=== PATIENT | female | born 1990 | race Caucasian/White ===

== ENCOUNTER 2019-02-07 13:31 | Outpatient (CLI) | payer OTHER ==
[2019-02-07 14:29] VITALS: BP 139/74; PULSE 102; RESP 16; TEMP 97
--- NOTE | 2019-02-08 10:29 | P.MSEPDOC ---
Presenting Problems - Arrival Data Date of Arrival on Unit: 02/07/19 Time of Arrival on Unit: 13:31 Mode of Transport: Ambulatory - Complaint OB-Reason for Admission/Chief Complaint: Rule Out PROM Medical History - Information : 1 Para: 0 Term: 0 : 0 Abortions: Spontaneous or Elective: 0 Number of Living Children: 0 - Gestational Age Gestational Age by HELEN (wks/days): 85 Weeks and 0 Days Review of Systems - Review of Systems Constitutional: No problems Breast: No problems ENT: No problems Cardiovascular: No problems Respiratory: No problems Gastrointestinal: No problems Genitourinary: No problems Musculoskeletal: No problems Neurological: No problems Skin: No problems Vital Signs - Temperature Temperature: 97.0 F Temperature Source: Temporal Artery Scan - Pulse Right Sitting Brachial Pulse Rate: 102 Pulse Assessment Method: Automatic Cuff - Respirations Respiratory Rate: 16 - Blood Pressure Right Arm Blood Pressure: 139/74 Blood Pressure Mean: 95 Blood Pressure Source: Automatic Cuff Medical Screen Scoring (Pre) - Cervical Exam Dilation: Exam Deferred Effacement: Exam Deferred Membranes: Intact - Uterine Contractions Frequency: N/A Duration: N/A Intensity: N/A - Maternal Vital Signs Maternal Temperature: N/A Maternal Blood Pressure: N/A Signs of Preeclampsia: N/A Maternal Respirations: N/A - Maternal Trauma Maternal Trauma: N/A - Assessment - Baby A Baseline FHR: 135 Heart Rate - NICHD Category: Category I (Normal) = 0 NST: Reactive Position: N/A Station: N/A - Total Score - Baby A Total Score - Baby A: 0 - Total Score - Baby B Total Score - Baby B: 0 - Total Score - Baby C Total Score - Baby C: 0 - Level of Risk - Baby A Level of Risk - Baby A: Low (0-5) - Level of Risk - Baby B Level of Risk - Baby B: Low (0-5) - Level of Risk - Baby C Level of Risk - Baby C: Low (0-5) Physician Notification (Pre) - Physician Notified Physician Notified Date: 02/07/19 Physician Notified Time: 14:17 New Order Received: Yes - Notification Comment Comment: discharge home with instructions Disposition - Disposition OB Disposition: Discharge to home, Written follow up instructions reviewed Discharge Date: 02/07/19 Discharge Time: 14:20 I agree with the RN Medical Screening Exam: Yes Risk & Benefit of care provided described in d/c instruction: Yes Diagnosis: FALSE LABOR BEFORE 37 COMPLETED WEEKS OF GEST, THIRD TRI
== END 2019-02-07 14:20 | disposition home or self-care (01) ==
LOC: FBPOP 13:31
PROVIDERS: ATTEND Obstetrics & Gynecology
DX: O47.1 False labor at or after 37 completed weeks of gestation (principal); Z3A.49 Greater than 42 weeks gestation of pregnancy
CPT/HCPCS: 59025; 84112; 99213

== ENCOUNTER 2019-03-22 05:47 | Inpatient (IN) | payer OTHER ==
[2019-03-22] MEDS: LACTATED RINGERS 1,000 ML IV SCH ×3 (06:05→20:52)
--- NOTE | 2019-03-22 06:07 | P.HPOB ---
History of Present Illness H&P Date: 03/22/19 Chief Complaint: Requested induction of labor. This patient is a pleasant 29-year-old 1 para 0 female estimated date of confinement 03/29/2019 estimated gestational age 39 weeks who presents to labor and delivery for requested induction of labor. Patient's care has been uncomplicated. I have been following her for large for gestational age but most recent ultrasound approximately 5 days ago showed the baby estimated weight of 8 pounds. Patient is now requesting delivery. Review of Systems Gastrointestinal: Reports heartburn Genitourinary: Reports Menstruation: Reports amenorrhea Past Medical History Additional Past Medical History / Comment(s): Patient has a history of erosive vulvitis. History of Any Multi-Drug Resistant Organisms: None Reported Past Surgical History: Breast Surgery, Orthopedic Surgery Additional Past Surgical History / Comment(s): Patient's had surgery to her arm and leg, she is also had bilateral breast implants which were removed in April 2018 Past Anesthesia/Blood Transfusion Reactions: No Reported Reaction Past Psychological History: No Psychological Hx Reported Smoking Status: Never smoker Past Alcohol Use History: None Reported Past Drug Use History: None Reported Medications and Allergies Home Medications Medication Instructions Recorded Confirmed Type No Known Home Medications 02/07/19 02/07/19 History Allergies Allergy/AdvReac Type Severity Reaction Status Date / Time No Known Allergies Allergy Verified 02/07/19 14:07 Exam - OBG Physical Exam Abdomen: bowel sounds normal, no diffuse tenderness, no bruit present, no guarding noted, no hepatomegaly, no splenomegaly, no mass Vulva: both: normal Vagina: normal moisture, no discharge Cervix: no lesion (Cervix and office is 2 cm dilated 50% effaced soft.), no discharge Uterus: enlarged (Fundal height was 39 cm) Results blood work shows she is O positive, rubella immune, RPR nonreactive, hepatitis B negative, HIV is nonreactive, Glucola was normal, group B strep was negative, ultrasounds have shown normal anatomy. Estimated weight is 8 pounds. Assessment and Plan Assessment: This is a pleasant 29-year-old 1 para 0 female 39-0/7 weeks gestation who presents to labor and delivery for requested induction of labor. Plan is induction of labor and anticipate vaginal delivery. (1) 39 weeks gestation of Current Visit: Yes Status: Acute Code(s): Z3A.39 - 39 WEEKS GESTATION OF SNOMED Code(s): 15862547 (2) Elective induction of labor planned Current Visit: Yes Status: Acute Code(s): [id number] - SNOMED Code(s): 004226580
[2019-03-22] MEDS ORDERED: LIDOCAINE 0.5% (PF) 5 MG/ML (50 ML SDV) SQ PRN (06:33)
[2019-03-22] MEDS ORDERED: METHYLERGONOVINE 0.2 MG/ML 1 ML AMP IM PRN (06:33)
[2019-03-22] MEDS ORDERED: OXYTOCIN 10 UNIT/ML 1 ML VIAL IM PRN (06:33)
[2019-03-22] MEDS ORDERED: TERBUTALINE 1 MG/ML VIAL SQ PRN (06:33)
[2019-03-22] MEDS ORDERED: OXYTOCIN 30 UNITS/500 ML NS 30 UNIT in SALINE 1 500ML.BAG IV SCH (06:33)
[2019-03-22] MEDS ORDERED: CARBOPROST TROMETHAMINE 250 MCG/ML 1 ML AMP IM PRN (06:33)
[2019-03-22 07:00] LABS: Basophils # (A) 0.1 k/uL (0-0.2); Basophils % (A) 0 %; Eosinophils # (A) 0.2 k/uL (0-0.7); Eosinophils % (A) 1 %; HCT 36.8 % (34.0-46.0); HGB 12.3 gm/dL (11.4-16.0); Lymphocytes # (A) 1.8 k/uL (1.0-4.8); Lymphocytes % (A) 11 %; MCH 28.4 pg (25.0-35.0); MCHC 33.4 g/dL (31.0-37.0); MCV 84.9 fL (80.0-100.0); Mean Platelet Volume 8.5; Monocytes # (A) 0.6 k/uL (0-1.0); Monocytes % (A) 4 %; Neutrophils # (A) 13.1 k/uL (1.3-7.7); Neutrophils % (A) 82 %; Platelet Count 424 k/uL (150-450); RBC 4.33 m/uL (3.80-5.40); RDW 13.9 % (11.5-15.5)
[2019-03-22] MEDS ORDERED: ceFAZolin 3 GM in SODIUM CHLORIDE 0.9% 100 ML IVPB ONE (16:40)
[2019-03-22] MEDS ORDERED: CITRIC ACID-SODIUM CITRATE 15 ML CUP PO ONE (16:40)
[2019-03-22] MEDS ORDERED: ONDANSETRON 4 MG/2 ML VIAL ONE (17:02)
[2019-03-22] MEDS ORDERED: OXYTOCIN 10 UNIT/ML 1 ML VIAL ONE (17:02)
[2019-03-22] MEDS ORDERED: NALBUPHINE 10 MG/ML (1 ML AMP) ONE (17:02)
[2019-03-22] MEDS ORDERED: MORPHINE SULFATE (PF) 0.3 MG/0.3 ML SYR ONE (17:02)
[2019-03-22] MEDS ORDERED: NALOXONE 0.4 MG/ML 1 ML VIAL IV PRN (17:37)
[2019-03-22] MEDS ORDERED: MORPHINE SULFATE 2 MG/ML SYRINGE IVP PRN (17:37)
[2019-03-22] MEDS ORDERED: ONDANSETRON 4 MG/2 ML VIAL IVP PRN (17:37)
[2019-03-22] MEDS ORDERED: NALBUPHINE 10 MG/ML (1 ML AMP) IV PRN (17:37)
[2019-03-22] MEDS ORDERED: KETOROLAC 30 MG/ML 1 ML VIAL IVP PRN (17:37)
[2019-03-22] MEDS ORDERED: ACETAMINOPHEN TAB 325 MG TAB PO PRN (17:57)
[2019-03-22] MEDS ORDERED: ZOLPIDEM 5 MG TAB PO PRN (17:57)
[2019-03-22] MEDS ORDERED: diphenhydrAMINE 25 MG CAP PO PRN (17:57)
[2019-03-22] MEDS ORDERED: METOCLOPRAMIDE 5 MG/ML 2 ML VIAL IVP PRN (17:57)
[2019-03-22] MEDS ORDERED: SIMETHICONE 80 MG CHEWABLE PO PRN (17:57)
[2019-03-22] MEDS ORDERED: HYDROcodone/APAP 5-325MG 1 EACH TAB PO PRN (17:57)
--- NOTE | 2019-03-22 17:57 | P.OP ---
Date of Procedure: 03/22/19 Preoperative Diagnosis: #1: 39-0/7 week . #2: Non-progression in labor with cephalopelvic dystocia. Postoperative Diagnosis: Same Procedure(s) Performed: Primary low transverse section Anesthesia: spinal Surgeon: Warren Bynum Box Liner #1: London Oliver Estimated Blood Loss (ml): 600 Pathology: none sent Condition: stable Disposition: floor Indications for Procedure: Please see dictated H&P for intimate details of this patient's admission. Brief summary is a pleasant 29-year-old 1 para 0 female 39-0/7 weeks gestation admitted to labor and delivery for requested induction of labor. Patient admitted she is 1-2 cm dilated and has artificial rupture membranes for clear fluid. Labor is induced with Pitocin and despite 10 hours of labor patient does not progress beyond 2 cm dilated. I discussed with the patient at this time as far as continued trial of labor versus delivery by section she's requested section which I feel is appropriate. Patient understands this surgery and risks: Risks of infection, bleeding, possible injury bowel, bladder, vessels, and/or other organs. She also understands risk of DVT and pulmonary embolism. All the patient's questions are answered written consent is obtained. Operative Findings: This is a vigorous viable male infant Apgars 8 and 9 delivery time is 1719 hrs. Description of Procedure: This patient has a Bundy catheter placed to straight drain. She is subsequently taken to the operating room where after the appropriate timeout, spinal anesthetic is administered without incident. With an adequate level of anesthesia she has abdominal prep and drape. Scalpels then taken and a Pfannenstiel skin incision is then made. A second scalpel is taken down the fascia the fascia scored with a knife. Fascial incision is extended bilaterally using Gandhi scissors. Fascia is then dissected sharply off the rectus muscles. Rectus muscles are then the peritoneum identified and entered sharply. Peritoneal incision extended superior and inferior without difficulty. At this time the Gurdeep self-retaining retractors placed. With excellent visualization the bladder blade is placed in the bladder peritoneum was taken off the lower uterine segment. Scalpels then taken low transverse uterine incision is made. Using a hemostat I into the uterine cavity bluntly and there is loss of clear fluid. This incision extended bluntly. 's head is then gently guided through the incision. Mouth and nares are bulb suctioned. The 's head appeared to be occiput posterior partially and slightly asynclitic. There is no evidence of a nuchal cord. We then have easily deliver the anterior and posterior shoulder and rest this infant's body. This is a vigorous viable male infant Apgars are 8 and 9 delivery time is 1719 hrs. After delivery of the infant the umbilical cord is doubly clamped and cut appears to be trivascular. The placenta is then manually extracted intact. Uterus is then externalized and uterine incision is then demarcated with Lyn clamps. Uterine incision closed using 0 Vicryl running locked fashion. 2 layers. With excellent hemostasis noted the uterus placed back into the abdomen. Excess fluid and blood is removed. Final inspection shows good hemostasis. Parietal peritoneum was then closed using 0 Vicryl running fashion. Of note the uterus tubes and ovaries appear normal for term gestation. The rectus muscles were to proximal 0 Vicryl interrupted fashion. Fascia is then closed using 0 PDS. Fascial incision is intact and hemostatic. Subcutaneous tissues and closed using a 3-0 Vicryl. Skin is and closed using bill. All counts are correct 3. There are no complications. and mother stable in delivery room.
[2019-03-22] MEDS ORDERED: OXYTOCIN 20 UNITS/1000 ML NS 1,000 ML IV SCH (18:00)
[2019-03-22] MEDS: diphenhydrAMINE 50 MG/ML 1 ML VIAL IVP PRN ×2 (20:38→22:20)
[2019-03-22] MEDS: SENNOSIDES-DOCUSATE SODIUM 1 EACH TAB PO SCH (20:52)
[2019-03-23] MEDS ORDERED: ceFAZolin 3 GM in SODIUM CHLORIDE 0.9% 100 ML IVPB SCH (01:00)
[2019-03-23] MEDS: LACTATED RINGERS 1,000 ML IV SCH (04:12)
--- NOTE | 2019-03-23 06:11 | P.PNOBGPC ---
Subjective - Subjective Patient reports: Reports appetite normal, Reports voiding normally, Reports pain well controlled, Reports ambulating normally : doing well Objective - Vital Signs Latest vital signs: Vital Signs Temp Pulse Resp BP Pulse Ox 03/23/19 04:00 98.1 F 75 16 136/68 100 03/23/19 02:00 16 03/23/19 00:00 98.3 F 71 16 123/84 100 03/22/19 22:00 14 03/22/19 19:43 97.4 F L 72 16 119/57 98 03/22/19 19:13 79 16 115/56 98 03/22/19 18:43 77 16 121/68 96 03/22/19 18:28 77 16 116/83 98 03/22/19 18:13 83 16 126/59 97 03/22/19 17:58 86 16 97/51 96 03/22/19 17:43 97.1 F L 89 16 144/65 98 Intake and Output 03/22/19 03/22/19 03/23/19 14:59 22:59 06:59 Intake Total 9041 440 5613 Output Total 700 800 Balance 1000 100 300 Intake: IV 800 Intake, IV Titration 1000 1100 Amount Lactated Ringers 1,000 ml 1000 @ 125 mls/hr IV .Q8H LUL[facility] Rx#:[id number] Lactated Ringers 1,000 ml 1000 @ 125 mls/hr IV .Q8H LULU Rx#:[id number] ceFAZolin 3 gm In Sodium 100 Chloride 0.9% 100 ml @ 200 mls/hr IVPB Q8H LULU Rx#:[id number] Output: Urine 100 800 Uretheral (Bundy) 800 Estimated Blood Loss 600 Other: Voiding Method Indwelling Catheter # Voids 3 0 - Exam Lungs: bilateral: normal Chest: Normal S1, Normal S2 Extremities: Present: normal Abdomen: Present: normal appearance, soft. Absent: distention, tenderness Incision: Present: normal, dry, intact Uterus: Present: normal, firm - Labs Labs: Abnormal Lab Results - Last 24 Hours (Table) 03/22/19 Range/Units 06:10 WBC 16.0 H (3.8-10.6) k/uL Neutrophils # 13.1 H (1.3-7.7) k/uL Assessment and Plan Assessment: Postoperative day #1. Patient is resting without complaints. Vital signs are stable she is afebrile. Uterus is firm nontender and her incision is intact and dry. Plan today is to check a CBC, encourage ambulation, advance to regular diet, continue care. (1) 39 weeks gestation of Current Visit: Yes Status: Acute Code(s): Z3A.39 - 39 WEEKS GESTATION OF SNOMED Code(s): 09088504 (2) Elective induction of labor planned Current Visit: Yes Status: Acute Code(s): [id number] - SNOMED Code(s): 198244235
[2019-03-23] MEDS: SENNOSIDES-DOCUSATE SODIUM 1 EACH TAB PO SCH ×2 (08:10→21:08)
[2019-03-23 09:37] LABS: Basophils % (A) 0 %; Eosinophils # (A) 0.1 k/uL (0-0.7); Eosinophils % (A) 1 %; HCT 35.2 % (34.0-46.0); HGB 11.4 gm/dL (11.4-16.0); Lymphocytes # (A) 1.1 k/uL (1.0-4.8); Lymphocytes % (A) 9 %; MCH 27.6 pg (25.0-35.0); MCHC 32.3 g/dL (31.0-37.0); MCV 85.7 fL (80.0-100.0); Monocytes # (A) 0.5 k/uL (0-1.0); Monocytes % (A) 4 %; Neutrophils # (A) 10.1 k/uL (1.3-7.7); Neutrophils % (A) 85 %; Platelet Count 277 k/uL (150-450); RBC 4.11 m/uL (3.80-5.40); RDW 14.3 % (11.5-15.5); WBC 11.9 k/uL (3.8-10.6)
--- NOTE | 2019-03-23 13:55 | P.PN ---
Progress Note - Text Progress Note Date: 03/23/19 (6:30 AM) Patient seen and examined at bedside, she is postop day 1 from with Duramorph spinal. VAS score today is 2-3/10. Patient denies headaches, lower extremity weakness, numbness and tingling. She has had some mild itching which improved with medications. She also had 1 episode of emesis last night, she is no longer nauseated. She has ambulated.
[2019-03-23] MEDS: IBUPROFEN 600 MG TAB PO PRN (23:00)
--- NOTE | 2019-03-24 06:54 | P.PNOBGPC ---
Subjective - Subjective Patient reports: Reports appetite normal, Reports voiding normally, Reports pain well controlled, Reports ambulating normally : doing well Objective - Vital Signs Latest vital signs: Vital Signs Temp Pulse Resp BP Pulse Ox 03/24/19 00:00 97.6 F 98 16 130/80 03/23/19 22:00 16 03/23/19 20:00 97.4 F L 105 H 16 133/71 03/23/19 17:54 20 100 03/23/19 15:42 97.6 F 90 20 126/68 100 03/23/19 14:00 20 100 03/23/19 12:00 98.1 F 98 20 128/64 99 03/23/19 10:00 20 100 03/23/19 08:00 97.7 F 95 20 109/74 100 Intake and Output 03/23/19 03/23/19 03/24/19 14:59 22:59 06:59 Intake Total 720 Output Total 900 1500 Balance -180 -1500 Intake: Oral 720 Output: Urine 900 1500 Other: # Voids 1 1 - Exam Lungs: bilateral: normal Chest: Normal S1, Normal S2 Extremities: Present: normal Abdomen: Present: normal appearance, soft. Absent: distention, tenderness Incision: Present: normal, dry, intact Uterus: Present: normal, firm - Labs Labs: Abnormal Lab Results - Last 24 Hours (Table) 03/23/19 Range/Units 08:28 WBC 11.9 H (3.8-10.6) k/uL Neutrophils # 10.1 H (1.3-7.7) k/uL Assessment and Plan Assessment: Postoperative day #2. Patient is doing well without new complaints. Vital signs are stable she's afebrile. Uterus is firm nontender and her incision is intact and dry. CBC yesterday was normal. Patient is tolerating regular diet. Plan today is to continue routine postoperative care discharge home tomorrow (1) 39 weeks gestation of Current Visit: Yes Status: Acute Code(s): Z3A.39 - 39 WEEKS GESTATION OF SNOMED Code(s): 01216612 (2) Elective induction of labor planned Current Visit: Yes Status: Acute Code(s): [id number] - SNOMED Code(s): 084924380
[2019-03-24] MEDS: SENNOSIDES-DOCUSATE SODIUM 1 EACH TAB PO SCH ×2 (08:29→19:53)
[2019-03-24] MEDS: IBUPROFEN 600 MG TAB PO PRN ×2 (08:30→19:52)
[2019-03-25] MEDS: IBUPROFEN 600 MG TAB PO PRN (03:41)
--- NOTE | 2019-03-25 06:34 | P.PNOBGPC ---
Subjective - Subjective Patient reports: Reports appetite normal, Reports voiding normally, Reports pain well controlled, Reports ambulating normally : doing well Objective - Vital Signs Latest vital signs: Vital Signs Temp Pulse Resp BP Pulse Ox 03/25/19 00:00 97.7 F 83 15 126/71 96 03/24/19 16:00 97.7 F 90 16 118/64 100 03/24/19 08:00 97.7 F 88 16 137/77 Intake and Output 03/24/19 03/24/19 03/25/19 14:59 22:59 06:59 Other: # Voids 1 2 1 - Exam Lungs: bilateral: normal Chest: Normal S1, Normal S2 Extremities: Present: normal Abdomen: Present: normal appearance, soft. Absent: distention, tenderness Incision: Present: normal, dry, intact Uterus: Present: normal, firm Assessment and Plan Assessment: Postoperative day #3. Patient is resting without complaints and wishes to go home. Vital signs are stable she is afebrile. Uterus is firm nontender she's having normal lochia. Incision is intact and dry. My impression this is a normal course. Plan is to continue routine care discharge home later today. (1) 39 weeks gestation of Current Visit: Yes Status: Acute Code(s): Z3A.39 - 39 WEEKS GESTATION OF SNOMED Code(s): 96072662 (2) Elective induction of labor planned Current Visit: Yes Status: Acute Code(s): [id number] - SNOMED Code(s): 4056 73863
--- NOTE | 2019-03-25 06:39 | P.DS ---
Providers Date of admission: 03/22/19 05:47 Expected date of discharge: 03/25/19 Attending physician: Warren Bynum Primary care physician: Stated None - Discharge Diagnosis(es) (1) 39 weeks gestation of Current Visit: Yes Status: Acute (2) Elective induction of labor planned Current Visit: Yes Status: Acute Hospital Course: Please see dictated H&P for intimate details of this patient's admission. Brief summary is a pleasant 29-year-old 1 para 0 female 39 weeks gestation admitted to labor and delivery for induction of labor. Patient's subsequent was on have a primary low transverse section. Please see dictated operative note. Postoperative patient does well and on postoperative 3 spell to be stable for discharge home follow up with me in 1 week for an incision check. Procedures: Induction of labor and primary low transverse section Patient Condition at Discharge: Good Plan - Discharge Summary New Discharge Prescriptions: New Ibuprofen [Motrin] 600 mg PO Q6HR PRN #40 tab PRN Reason: Mild Pain Or Fever >= 100.5 HYDROcodone/APAP 5-325MG [Hoffmeister 5-325] 1 each PO Q4HR PRN #18 tab PRN Reason: Moderate Pain Discharge Medication List HYDROcodone/APAP 5-325MG [Hoffmeister 5-325] 1 each PO Q4HR PRN #18 tab 03/25/19 [Rx] Ibuprofen [Motrin] 600 mg PO Q6HR PRN #40 tab 03/25/19 [Rx] Follow up Appointment(s)/Referral(s): Warren Bynum MD [STAFF PHYSICIAN] - 03/30/19 9:00 am (Please see me for a visit on April 28 at 10:45 AM as well.) Patient Instructions/Handouts: (DC) Activity/Diet/Wound Care/Special Instructions: No strenuous activities or heavy lifting for 6 weeks. No driving. No intercourse or anything per vagina for 6 weeks. Please call if any fever, chills, excessive vaginal bleeding, and/or abdominal pain. Discharge Disposition: HOME SELF-CARE
[2019-03-25 08:28] VITALS: BP 131/75; PULSE 80; RESP 16; TEMP 98.1
[2019-03-25] MEDS: SENNOSIDES-DOCUSATE SODIUM 1 EACH TAB PO SCH (09:29)
== END 2019-03-25 10:45 | disposition home or self-care (01) | DRG 788 ==
LOC: 4FBP 05:47
PROVIDERS: ADMIT Obstetrics & Gynecology; ATTEND Obstetrics & Gynecology
PROC: 10D00Z1 Extraction of Products of Conception, Low, Open Approach (ICD-10-PCS; principal; 2019-03-22 17:00)
DX: O65.8 Obstructed labor due to other maternal pelvic abnormalities (principal); Z37.0 Single live birth; Z3A.39 39 weeks gestation of pregnancy; Z98.82 Breast implant status
CPT/HCPCS: 85025; 86850; 86900; 86901

== ENCOUNTER → 2019-10-28 | Outpatient (CLI) | payer OTHER | END | disposition home or self-care (01) | LOC: LABWHC1 10:49 | PROVIDERS: ATTEND Internal Medicine Critical Care Medicine | DX: Z20.828 Contact with and (suspected) exposure to other viral communicable diseases (principal) | CPT/HCPCS: U0003; C9803 ==

== ENCOUNTER → 2019-12-21 | Outpatient (CLI) | payer OTHER | END | disposition home or self-care (01) | LOC: LABWHC1 14:12 | PROVIDERS: ATTEND Family Medicine | DX: Z20.828 Contact with and (suspected) exposure to other viral communicable diseases (principal); R68.83 Chills (without fever) | CPT/HCPCS: U0003; C9803 ==

== ENCOUNTER → 2020-05-23 | Outpatient (CLI) | payer OTHER ==
--- NOTE | 2020-05-24 07:07 | US ---
EXAMINATION TYPE: Transabdominal DATE OF EXAM: 05/23/2020 4:35 PM COMPARISON: NONE CLINICAL HISTORY: Z36 Confirm dates. confirm dates EXAM PERFORMED: Transvaginal (TV) and Transabdominal (TA) EXAM MEASUREMENTS: GESTATIONAL AGE / DATING Physician Established: Not yet established Dates by LMP: (9 weeks/6 days) EDC: 12/20/20 Dates by First Scan: No previous this is first scan Dates by Current Scan for: (9 weeks/4 days) EDC: 12/22/20 MATERNAL ANATOMY Uterus: 8.7 x 7.4 x 7.5cm Right Ovary: 4.6 x 3.4 x 4.2cm Left Ovary: 4.2 x 1.9 x 1.5cm Post CDS / Adnexa: appears wnl Presence of free fluid: no Presence of corpus luteal cyst: cystic area right ovary = 3.7 x 3.3 x 3.5cm GESTATION / SURVEY CRL: 2.8cm (9 weeks/4 days) Yolk Sac (normal less than 6mm): 0.4cm Heart Rate: 170 bpm Rhythm: Normal IUP: Viable IUP Date of LMP: 03/15/20 Beta HcG (if available): Not available at this time IMPRESSION: Single viable intrauterine .
== END | disposition home or self-care (01) ==
LOC: RADUSWWP 16:10
PROVIDERS: ATTEND Obstetrics & Gynecology
DX: Z36.87 Encounter for antenatal screening for uncertain dates (principal)
CPT/HCPCS: 76801; 76817

== ENCOUNTER → 2020-06-11 | Outpatient (CLI) | payer OTHER ==
[2020-06-11 14:53] LABS: HCT 38.2 % (37.2-46.3); HGB 12.5 g/dL (12.0-15.0); MCHC 32.7 g/dL (32.0-37.0); MCV 85.5 fL (80.0-97.0); Platelet Count 332 X 10*3/uL (140-440); RBC 4.47 X 10*6/uL (4.10-5.20); RDW 13.8 % (11.5-14.5); WBC 11.77 X 10*3/uL (4.50-10.00)
[2020-06-11 15:23] LABS: African American GFR (CKD) 148.4 (60.0-200.0); Non-African American GFR(CKD) 128.1 (60.0-200.0)
[2020-06-11 15:25] LABS: Hepatitis B Surface Antigen Non-Reactive (Non-Reactive)
== END | disposition home or self-care (01) ==
LOC: LABWHC1 09:10
PROVIDERS: ATTEND Obstetrics & Gynecology
DX: Z34.81 Encounter for supervision of other normal pregnancy, first trimester (principal); Z3A.00 Weeks of gestation of pregnancy not specified
CPT/HCPCS: 36415; 82565; 82947; 85027; 86762; 86780; 86850; 86900; 86901; 87340

== ENCOUNTER 2020-12-17 05:52 | Inpatient (IN) | payer OTHER ==
--- NOTE | 2020-12-14 06:53 | P.HPOB ---
History of Present Illness H&P Date: 12/14/20 Chief Complaint: Repeat section This patient is a pleasant 30-year-old 2 para 1 female estimated date of confinement 12/21/2020 estimated gestational age 39-3/7 weeks who presents to labor and delivery for elective repeat section. Patient's care has been uncomplicated. She did develop Covid in June of this year but no sequelae from that. Review of Systems Genitourinary: Reports Menstruation: Reports amenorrhea Past Medical History Additional Past Medical History / Comment(s): Patient has a history of erosive vulvitis. Patient previous term section for baby boy History of Any Multi-Drug Resistant Organisms: None Reported Past Surgical History: Breast Surgery, Section, Orthopedic Surgery Additional Past Surgical History / Comment(s): Patient's had surgery to her arm and leg, she is also had bilateral breast implants which were removed in April 2018 Past Anesthesia/Blood Transfusion Reactions: No Reported Reaction Past Psychological History: No Psychological Hx Reported Smoking Status: Never smoker Past Alcohol Use History: None Reported Past Drug Use History: None Reported - Past Family History Mother Family Medical History: No Reported History Medications and Allergies Allergies Allergy/AdvReac Type Severity Reaction Status Date / Time No Known Allergies Allergy Verified 02/07/19 14:07 Exam - OBG Physical Exam Breast: both: normal (no masses) Abdomen: bowel sounds normal, no diffuse tenderness, no bruit present, no guarding noted, no hepatomegaly, no splenomegaly, no mass Vulva: both: normal Vagina: normal moisture, no discharge Cervix: no lesion, no discharge Uterus: enlarged (Colace 39 cm) Results blood work shows she is O positive, rubella immune, RPR nonreactive, hepatitis B negative, group B strep was negative, Glucola was normal, growth and anatomy ultrasounds have been normal. Assessment and Plan Assessment: This is a pleasant 30-year-old 2 para 1 female 39-3/7 weeks gestation admitted to labor and delivery for elective repeat section. Plan is repeat low transverse section. Patient I have discussed the surgery and risks: Risks of infection, bleeding, possible injury bowel, bladder, vessels, and/or other organs. All the patient's questions are answered and a written consent is obtained. (1) Previous delivery affecting Status: Acute Code(s): O34.219 - MATERNAL CARE FOR UNSP TYPE SCAR FROM PREVIOUS DEL SNOMED Code(s): 227506172 (2) 39 weeks gestation of Status: Acute Code(s): Z3A.39 - 39 WEEKS GESTATION OF SNOMED Code(s): 97267812
[2020-12-17] MEDS ORDERED: CITRIC ACID-SODIUM CITRATE 15 ML CUP PO ONE (06:11)
[2020-12-17] MEDS ORDERED: LACTATED RINGERS 1,000 ML IV ONE (06:11)
[2020-12-17] MEDS ORDERED: LACTATED RINGERS 1,000 ML IV SCH (06:11)
[2020-12-17] MEDS ORDERED: ceFAZolin 3 GM in SODIUM CHLORIDE 0.9% 100 ML IVPB ONE (06:30)
[2020-12-17 06:35] LABS: Basophils % (A) 0 %; Eosinophils # (A) 0.1 k/uL (0-0.7); Eosinophils % (A) 1 %; HCT 39.5 % (34.0-46.0); HGB 12.7 gm/dL (11.4-16.0); Lymphocytes % (A) 17 %; MCH 27.3 pg (25.0-35.0); MCHC 32.2 g/dL (31.0-37.0); Mean Platelet Volume 8.1; Monocytes # (A) 0.4 k/uL (0-1.0); Monocytes % (A) 4 %; Neutrophils # (A) 8.7 k/uL (1.3-7.7); Neutrophils % (A) 75 %; Platelet Count 377 k/uL (150-450); RBC 4.65 m/uL (3.80-5.40); RDW 14.9 % (11.5-15.5); WBC 11.5 k/uL (3.8-10.6)
[2020-12-17] MEDS ORDERED: KETOROLAC 15 MG/ML 1 ML VIAL ONE (07:50)
[2020-12-17] MEDS ORDERED: NALBUPHINE 10 MG/ML (1 ML AMP) ONE (07:50)
[2020-12-17] MEDS ORDERED: MORPHINE SULFATE (PF) 0.3 MG/0.3 ML SYR ONE (07:50)
[2020-12-17] MEDS ORDERED: ePHEDrine SULFATE/0.9% NACL/PF 50 MG/5 ML SYRINGE IV ONE (07:50)
[2020-12-17] MEDS ORDERED: OXYTOCIN 30 UNITS/500 ML NS BAG IV ONE (07:50)
[2020-12-17] MEDS ORDERED: ONDANSETRON 4 MG/2 ML VIAL ONE (07:50)
--- NOTE | 2020-12-17 08:39 | P.OP ---
Date of Procedure: 12/17/20 Preoperative Diagnosis: #1: 39-3/7 week intrauterine . #2: Previous section desires repeat Postoperative Diagnosis: Same Procedure(s) Performed: Repeat low transverse section Anesthesia: spinal Surgeon: Warren Bynum Spout Liner #1: Mihaela Cuevas Estimated Blood Loss (ml): 657 Pathology: none sent Condition: stable Disposition: floor Indications for Procedure: Please see dictated H&P for intimate details of this patient's admission. Brief summary is a pleasant 30-year-old 2 para 1 female 39-3/7 weeks gestation admitted to labor and delivery for elective repeat section. Patient I have discussed the surgery and risks and risks of infection, bleeding, possible injury bowel, bladder, vessels, and/or other organs. All the patient's questions are answered and a written consent obtained. Operative Findings: This was a vigorous viable female Apgars blank and blank. 0807 hrs. This patient normal appearing uterus, tubes, and ovaries. Description of Procedure: This patient has a Bundy catheter placed to straight drain. She is subsequently taken to the operating room where she sat up and spinal anesthetic is administered without incident. With an adequate level of anesthesia she has abdominal prep and drape. Scalpels and taken Pfannenstiel skin incision is made. A second scalpel is taken down to the fascia. Fascia scored with a knife . Fascial incision extended bilaterally using the Gandhi scissors. Fascia is then dissected off the rectus muscles sharply. Rectus muscles are the peritoneum identified and entered sharply. Peritoneal incision extended superior and inferior without difficulty. Bladder blade is then placed. Bladder peritoneum was taken off the lower uterine segment sharply. Scalpels then taken low transverse uterine incision is then made. Using a hemostat I into the uterine cavity bluntly and there is loss of clear fluid. This incision is extended bluntly. 's head is then guided through the incision with fundal pressure mouth and nares are bulb suctioned. There is no evidence of a nuchal cord. With more fundal pressure we then deliver the rest this 's body. This is a vigorous viable female Apgars are pending at time is dictation. has spontaneous respiration and good cry. After delivery of the the umbilical cord is doubly clamped and cut appears to be trivascular. The placenta is then manually extracted intact. Exploration uterine cavity shows no evidence of any tissue. Uterus is then externalized and uterine incision demarcated with Lyn clamps. Uterine incision is then closed using 0 Vicryl running locked fashion 2 layers. Excellent hemostasis is noted. This done excess fluid is removed from the abdomen and pelvis uterus placed back into the abdomen. Parietal peritoneum was then identified and closed in 0 Vicryl running fashion. Rectus muscles reapproximated in 0 Vicryl interrupted fashion. Fascial incision is then closed using 0 PDS running fashion. Fascial incision is intact and hemostatic. Subcutaneous tissue was then closed using a 3-0 Vicryl. Skin is and closed using bill. All counts are correct 3. There are no complications. Infant and mother are stable delivery room.
[2020-12-17] MEDS ORDERED: OXYTOCIN 30 UNITS/500 ML NS 30 UNIT in SALINE 1 500ML.BAG IV SCH (09:18)
[2020-12-17] MEDS ORDERED: SIMETHICONE 80 MG CHEWABLE PO PRN (09:18)
[2020-12-17] MEDS ORDERED: diphenhydrAMINE 50 MG/ML 1 ML VIAL IVP PRN (09:18)
[2020-12-17] MEDS ORDERED: ONDANSETRON 4 MG/2 ML VIAL IVP PRN (09:18)
[2020-12-17] MEDS ORDERED: METOCLOPRAMIDE 5 MG/ML 2 ML VIAL IVP PRN (09:18)
[2020-12-17] MEDS ORDERED: ZOLPIDEM 5 MG TAB PO PRN (09:18)
[2020-12-17] MEDS ORDERED: NALOXONE 0.4 MG/ML 1 ML VIAL IV PRN ×2 (09:18→09:59)
[2020-12-17] MEDS ORDERED: diphenhydrAMINE 25 MG CAP PO PRN (09:18)
[2020-12-17] MEDS ORDERED: LANOLIN CREAM 5 GM TUBE TOPICAL PRN (09:18)
[2020-12-17] MEDS: KETOROLAC 15 MG/ML 1 ML VIAL IVP SCH (18:05)
[2020-12-17] MEDS: SENNOSIDES-DOCUSATE SODIUM 1 EACH TAB PO PRN (20:28)
[2020-12-18] MEDS: KETOROLAC 15 MG/ML 1 ML VIAL IVP SCH ×3 (00:28→21:02)
[2020-12-18] MEDS: LACTATED RINGERS 1,000 ML IV SCH ×3 (01:26→21:02)
--- NOTE | 2020-12-18 06:05 | P.PNOBGPC ---
Subjective - Subjective Patient reports: Reports appetite normal, Reports voiding normally, Reports pain well controlled, Reports ambulating normally : doing well Objective - Vital Signs Latest vital signs: Vital Signs Temp Pulse Resp BP Pulse Ox 12/18/20 03:25 97.8 F 74 16 114/75 96 12/18/20 02:00 16 96 12/18/20 00:00 97.9 F 74 17 130/80 96 12/17/20 22:00 16 97 12/17/20 20:00 97.9 F 76 17 134/71 97 12/17/20 17:28 17 97 12/17/20 15:47 98.0 F 78 17 113/68 12/17/20 12:00 97.3 F L 86 16 122/58 99 12/17/20 10:40 97.6 F 85 16 142/60 95 12/17/20 10:10 97.7 F 63 16 127/60 97 12/17/20 09:59 16 12/17/20 09:40 97.9 F 71 16 128/58 95 12/17/20 09:25 97.6 F 77 17 130/59 99 12/17/20 09:18 96 12/17/20 09:10 97.3 F L 70 17 127/58 95 12/17/20 08:55 97.9 F 75 16 126/61 94 L 12/17/20 08:40 98.0 F 88 16 121/59 95 12/17/20 06:10 97.9 F 93 16 142/68 97 Intake and Output 12/17/20 12/17/20 12/18/20 14:59 22:59 06:59 Intake Total 480 Output Total 600 1850 Balance 480 -600 -1850 Intake: Oral 480 Output: Urine 600 1850 Uretheral (Bundy) 600 Other: # Voids 2 - Exam Lungs: bilateral: normal Chest: Normal S1, Normal S2 Extremities: Present: normal Abdomen: Present: normal appearance, soft. Absent: distention, tenderness Incision: Present: normal, dry, intact Uterus: Present: normal, firm - Labs Labs: Abnormal Lab Results - Last 24 Hours (Table) 12/17/20 Range/Units 06:00 WBC 11.5 H (3.8-10.6) k/uL Neutrophils # 8.7 H (1.3-7.7) k/uL Assessment and Plan Assessment: Postoperative day #1. Patient is resting without complaints. Vital signs are stable and she is afebrile. Uterus is firm nontender and her incision is intact and dry. CBC is pending. Patient did require one episode of straight catheterization however she is urinating without difficulty now. Plan today is to advance her diet, encourage ambulation, check CBC, and continue routine care. (1) Previous delivery affecting Current Visit: No Status: Acute Code(s): O34.219 - MATERNAL CARE FOR UNSP TYPE SCAR FROM PREVIOUS DEL SNOMED Code(s): 203376153 (2) 39 weeks gestation of Current Visit: No Status: Acute Code(s): Z3A.39 - 39 WEEKS GESTATION OF SNOMED Code(s): 92788898
[2020-12-18 06:19] LABS: Basophils % (A) 0 %; Eosinophils # (A) 0.1 k/uL (0-0.7); Eosinophils % (A) 1 %; HCT 33.5 % (34.0-46.0); HGB 10.8 gm/dL (11.4-16.0); Lymphocytes # (A) 1.2 k/uL (1.0-4.8); Lymphocytes % (A) 12 %; MCH 27.4 pg (25.0-35.0); MCHC 32.4 g/dL (31.0-37.0); MCV 84.6 fL (80.0-100.0); Mean Platelet Volume 8.2; Monocytes # (A) 0.5 k/uL (0-1.0); Monocytes % (A) 5 %; Neutrophils % (A) 80 %; Platelet Count 251 k/uL (150-450); RBC 3.96 m/uL (3.80-5.40); RDW 14.3 % (11.5-15.5); WBC 10.1 k/uL (3.8-10.6)
--- NOTE | 2020-12-18 07:29 | P.PN ---
Progress Note - Text Progress Note Date: 12/18/20 Postoperative day 1 status post section under spinal anesthesia, and i ntrathecal morphine given for postoperative analgesia, patient doing well, there is no anesthesia related complications, Patient had no headache, vital signs stable , Assessment and plan= postop day 1 status post , doing well there is no anesthesia related complication.
[2020-12-18] MEDS: ACETAMINOPHEN TAB 500 MG TAB PO PRN ×3 (08:31→23:39)
[2020-12-18] MEDS: SENNOSIDES-DOCUSATE SODIUM 1 EACH TAB PO PRN ×2 (08:31→20:26)
[2020-12-18] MEDS: IBUPROFEN 600 MG TAB PO PRN ×2 (14:14→20:26)
[2020-12-19 00:04] VITALS: BP 132/81; PULSE 72; RESP 17; TEMP 97.7
[2020-12-19] MEDS: IBUPROFEN 600 MG TAB PO PRN (05:37)
--- NOTE | 2020-12-19 06:34 | P.PNOBGPC ---
Subjective - Subjective Patient reports: Reports appetite normal, Reports voiding normally, Reports pain well controlled, Reports ambulating normally : doing well Objective - Vital Signs Latest vital signs: Vital Signs Temp Pulse Resp BP Pulse Ox 12/19/20 00:00 97.7 F 72 17 132/81 97 12/18/20 16:00 98.8 F 93 16 130/76 99 12/18/20 14:00 18 98 12/18/20 12:00 97.7 F 82 17 114/74 97 12/18/20 10:00 16 97 12/18/20 09:18 97 12/18/20 08:46 98.0 F 83 18 116/60 98 12/18/20 08:00 98.0 F 83 18 116/60 97 - Exam Lungs: bilateral: normal Chest: Normal S1, Normal S2 Extremities: Present: normal Abdomen: Present: normal appearance, soft. Absent: distention, tenderness Incision: Present: normal, dry, intact Uterus: Present: normal, firm Assessment and Plan Assessment: day #2. Patient is resting without complaints and wishes to go home. Vital signs are stable and she is afebrile. Uterus is firm nontender and she is having normal lochia. Her incision is intact and dry. CBC yesterday was normal. Patient is ambulating, urinating, tolerating regular diet. Plan today is to continue routine postoperative care and discharge home later this morning. (1) Previous delivery affecting Current Visit: No Status: Acute Code(s): O34.219 - MATERNAL CARE FOR UNSP TYPE SCAR FROM PREVIOUS DEL SNOMED Code(s): 759252490 (2) 39 weeks gestation of Current Visit: No Status: Acute Code(s): Z3A.39 - 39 WEEKS GESTATION OF SNOMED Code(s): 98364234
--- NOTE | 2020-12-19 06:41 | P.DS ---
Providers Date of admission: 12/17/20 05:52 Expected date of discharge: 12/19/20 Attending physician: Warren Bynum Primary care physician: Stated None - Discharge Diagnosis(es) (1) Previous delivery affecting Current Visit: No Status: Acute (2) 39 weeks gestation of Current Visit: No Status: Acute Hospital Course: Please see dictated H&P for intimate details of this patient's admission. Brief summary is a pleasant 30-year-old 2 para 1 female 39-3/7 weeks gestation who is admitted to labor and delivery for elective repeat section. Patient is admitted she undergoes repeat low transverse section for viable female . Please see dictated operative note. Postoperative patient does well and on postoperative 2 felt be stable for discharge home follow up with me in 1 week. Procedures: Repeat low transverse section Patient Condition at Discharge: Good Plan - Discharge Summary New Discharge Prescriptions: New Ibuprofen [Motrin] 600 mg PO Q6H PRN #30 tab PRN Reason: Pain oxyCODONE HCL [OxyIR] 5 mg PO Q4HR PRN #18 tab PRN Reason: Pain Discharge Medication List Ibuprofen [Motrin] 600 mg PO Q6H PRN #30 tab 12/19/20 [Rx] oxyCODONE HCL [OxyIR] 5 mg PO Q4HR PRN #18 tab 12/19/20 [Rx] Follow up Appointment(s)/Referral(s): Warren Bynum MD [STAFF PHYSICIAN] - 12/26/20 8:30 am (Please come see me on January 29 at 11:15 AM for a visit as well.) Patient Instructions/Handouts: (DC) Activity/Diet/Wound Care/Special Instructions: No heavy lifting or strenuous activity for 6 weeks. No intercourse or anything per vagina for 6 weeks. Please call if any fever, chills, excessive vaginal bleeding, and/or abdominal pain. Discharge Disposition: HOME SELF-CARE
== END 2020-12-19 07:35 | disposition home or self-care (01) | DRG 788 ==
LOC: 4FBP 05:52
PROVIDERS: ADMIT Obstetrics & Gynecology; ATTEND Obstetrics & Gynecology
PROC: 10D00Z1 Extraction of Products of Conception, Low, Open Approach (ICD-10-PCS; principal; 2020-12-17 08:00)
DX: O34.211 Maternal care for low transverse scar from previous cesarean delivery (principal); Z37.0 Single live birth; Z3A.39 39 weeks gestation of pregnancy; Z86.16 Personal history of COVID-19; Z98.82 Breast implant status
CPT/HCPCS: 85025; 86850; 86900; 86901

== ENCOUNTER → 2021-09-27 | Outpatient (CLI) | payer OTHER ==
--- NOTE | 2021-09-28 04:06 | MR ---
EXAMINATION TYPE: MR foot LT wo con DATE OF EXAM: 09/27/2021 COMPARISON: None HISTORY: L foot pain, mid foot pain x 2 years Multiplanar multiecho imaging of the left foot with no contrast. Achilles tendon is intact. Plantar fascia appears normal. There is mild ankle joint effusion. There a re small subtalar joint effusion. There is some mild soft tissue edema around the distal second third and fourth metatarsals. Metatarsals are intact. The toes appear intact. No fracture seen. The joint spaces are fairly normal. No evidence of focal bone destruction. The medial and lateral flexor tendons of the foot appear intact. There is some mild soft tissue edema lateral to the fifth metatarsal. IMPRESSION: There is some mid and forefoot soft tissue edema around the second third fourth and fifth metatarsals . No fracture seen. No sign of osteomyelitis. No evidence of ligament or tendon tear. Small ankle joint effusion.
== END | disposition home or self-care (01) ==
LOC: RADMRIMAIN 07:18
PROVIDERS: ATTEND Podiatrist
DX: M65.872 Other synovitis and tenosynovitis, left ankle and foot (principal); G57.62 Lesion of plantar nerve, left lower limb

== ENCOUNTER → 2022-12-29 | Outpatient (CLI) | payer OTHER ==
--- NOTE | 2022-12-29 12:36 | US ---
EXAMINATION TYPE: US transvaginal DATE OF EXAM: 12/29/2022 COMPARISON: NONE CLINICAL INDICATION: Female, 32 years old with history of R10.2 PELVIC AND PERINEAL PAIN; Intermitten t pelvic pain for years, TECHNIQUE: TV. Transvaginal sonographic images Date of LMP: Dec 17 2022 EXAM MEASUREMENTS: Uterus: 8.2 x 3.7 x 4.0 cm Endometrial Stripe: 0.8 cm Right Ovary: 3.1 x 2.2 x 2.1 cm Left Ovary: not seen 1. Uterus: Anteverted difficult to penetrate, wnl 2. Endometrium: wnl 3. Right Ovary: wnl 4. Left Ovary: not seen due to bowel 5. Bilateral Adnexa: wnl 6. Posterior cul-de-sac: wnl IMPRESSION: 1. No evidence for acute process. 2. Endometrium appears within normal limits for size. 3. Left ovary not seen due to bowel.
== END | disposition home or self-care (01) ==
LOC: RADUSWWP 10:44
PROVIDERS: ATTEND Obstetrics & Gynecology
DX: N95.0 Postmenopausal bleeding (principal)
CPT/HCPCS: 76830